=== PATIENT | male | born 1985 | race Caucasian/White ===

== ENCOUNTER 2021-01-15 20:52 | Emergency (ER) | payer MEDICAID, SELFPAY ==
[2021-01-15 20:54] VITALS: BP 139/80; PULSE 93; RESP 16; TEMP 37; O2SAT 97; BMI 23.6
--- NOTE | 2021-01-15 21:32 | ED.GENADULT ---
HPI - General Adult General Chief complaint: Skin/Abscess/Foreign Body Stated complaint: Earache Time Seen by Provider: 01/15/21 21:15 Source: patient Mode of arrival: ambulatory History of Present Illness HPI narrative: This is a 35-year-old male who presents with initiation of pain and burning approximately 3 days ago on the right side of his face which has progressed and states that he thought he had an ear infection denies any visual blurriness or deficits and then noted approximately within the past 24 hours the development of a rash. Otherwise, he denies any fevers, chills. Related Data Previous Rx's Medication Instructions Recorded valacyclovir 1,000 mg PO Q8H 10 Days #30 tab 01/15/21 Allergies Allergy/AdvReac Type Severity Reaction Status Date / Time Penicillins [PENICILLINS] Allergy Unknown UNKNOWN Verified 01/15/21 20:54 Review of Systems Review of Systems: Pertinent positives and negatives as stated in HPI 10 point review of systems is otherwise negative. PMFSH Past Medical History Source: nursing notes reviewed Medical History No known health problems Social History Social History Advance Directives: No Advance Directives Information Provided: Yes Physical Exam Vital Signs: Vital Signs: Last Vital Signs Temp 98.6 F 01/15/21 20:54 Pulse 93 01/15/21 20:54 Resp 16 01/15/21 20:54 BP 139/80 01/15/21 20:54 Pulse Ox 97 01/15/21 20:54 Body Mass Index 23.6 VITAL SIGNS: Reviewed. GENERAL: Well developed, well nourished, in no acute distress. HEAD: Normocephalic/vesicular rash as documented in the skin section EYES: PERRLA, EOMI with mild conjunctival injection in the right eye EARS: Ext canals without abnormality, TMs non-bulging and non-erythematous, no vesicles noted in the right ear, right postauricular node swelling NOSE: Nares patent bilateral OROPHARYNX: no oral lesions noted, posterior pharynx clear NECK: Supple, no adenopathy LUNGS: Normal breath sounds. No adventitious sounds or accessory muscle use. SpO2<97> CARDIOVASCULAR: Regular rate and rhythm without noted murmurs ABDOMEN: Soft, non-tender, non-distended with bowel sounds. SKIN: Inspection of the skin reveals vesicular rash affecting right temporal and extending anteriorly involving the right upper lid and down onto the nasal bridge with mild conjunctival injection in various stages or effusions noted on gross inspection. NEUROLOGIC: Alert and oriented x 4. Course Course Course Narrative: This is a 35-year-old male with history and clinical presentation consistent with herpes zoster patient will receive initial valacyclovir here in the ED and obtained baseline CMP and understands that he needs to follow up with an eye doctor 1st thing on Sunday. Although Hernandes's sign is present there are no characteristic clinical findings of visual deficits or uveitis. Patient was discharged in stable condition Discharge Plan Discharge Clinical Impression: Herpes zoster Qualifiers: Herpes zoster complications: without complications Qualified Code(s): B02.9 - Zoster without complications Patient Disposition: Home, Self-Care Instructions: Shingles (ED) Additional Instructions: 1. Tylenol 1000 mg, orally, every 6 hours as needed for pain control. Do not exceed 4000 mg within 24 hours. In addition, ibuprofen 400 mg, orally with milk or food, every 6 hours as needed for additional pain control. 2. May use cool compresses and eyedrops for additional symptom relief for the eye. 3. Your aware that you need to follow-up with an eye doctor 1st thing on Sunday for further evaluation of your right eye. 4. Do not hesitate to return to the emergency department if you have any acute worsening of her symptoms. Prescriptions: New valacyclovir 1 gram tablet 1,000 mg PO Q8H 10 Days Qty: 30 RF: 0 Referrals: Physician,None [Primary Care Provider] - 2 days
[2021-01-15 22:04] LABS: Alanine Aminotransferase 10 U/L (0-40); Albumin Level 4.5 g/dL (3.5-5.0); Alkaline Phosphatase 72 U/L (39-117); Anion Gap 12 (12-20); Aspartate Amino Transferase 14 U/L (5-37); Bilirubin Total 0.7 mg/dL (0.0-1.0); Blood Urea Nitrogen 12 mg/dL (9-16); Calcium 8.7 mg/dL (8.4-10.2); Carbon Dioxide 28 mmol/L (22-29); Chloride 103 mmol/L (96-108); Estimated Glomerular Filt Rate > 60; Glucose Random 91 mg/dL (60-115); Potassium 3.8 mmol/L (3.3-5.1); Sodium 139 mmol/L (135-145)
== END 2021-01-15 21:54 | disposition home or self-care (01) ==
PROVIDERS: Emergency Provider Student in an Organized Health Care Education/Training Program
DX: B02.9 Zoster without complications (principal)
CPT/HCPCS: 36415; 80053; 99283; 99284